=== PATIENT | female | born 1955 | race African-American/Black ===

== ENCOUNTER 2017-11-13 13:02 | Emergency (ER) | payer OTHER | END 2017-11-13 13:59 | disposition home or self-care (01) | LOC: ER 13:02 | DX: R51 Headache (principal); E11.9 Type 2 diabetes mellitus without complications; E78.00 Pure hypercholesterolemia, unspecified; I10 Essential (primary) hypertension; F17.210 Nicotine dependence, cigarettes, uncomplicated | CPT/HCPCS: 70450; 99284-25 ==

== ENCOUNTER 2018-05-17 15:45 | Emergency (ER) | payer OTHER ==
[~2018-05-17] VITALS: Ht 162.6 cm; Wt 77.6 kg
[~2018-05-17 15:45] MED LIST: ACET325T9 PO; PROC10TA57 PO
[2018-05-17 16:23] VITALS: BP 185/86
--- NOTE | 2018-05-17 16:31 | PHYS DOC ---
Past Medical History Past Medical History: Diabetes-Type II, High Cholesterol, Hypertension Past Surgical History: No Surgical History Additional Information: "I'M TRYIN' TO QUIT" Alcohol Use: None Drug Use: None Adult General Chief Complaint Chief Complaint: HEADACHE HPI HPI Patient is a 62 year old female who presents with was standing at the [place] and had a freezer door open and stood up and hit the top of her head on the freezer door Pavithra day. Patient denies any loss of consciousness, nausea , C-spine pain, vomiting, visual changes, dizziness, and numbness, tingling. Patient states she has not taken any pain meds today but yesterday took ibuprofen which helped. Patient rates the pain at or out of 10 and states is aching. Patient denies fever, kidney problems, chest pain, shortness of air. There is no laceration on top of her head or a bump which she hit her head. Review of Systems Review of Systems Constitutional: Denies fever or chills [] Eyes: Denies change in visual acuity, redness, or eye pain [] HENT: Denies nasal congestion or sore throat [] Respiratory: Denies cough or shortness of breath [] Cardiovascular: No additional information not addressed in HPI [] GI: Denies abdominal pain, nausea, vomiting, bloody stools or diarrhea [] : Denies dysuria or hematuria [] Musculoskeletal: Denies back pain or joint pain [] Integument: Denies rash or skin lesions [] Neurologic: Headache. Denies focal weakness or sensory changes [] Endocrine: Denies polyuria or polydipsia [] All other systems were reviewed and found to be within normal limits, except as documented in this note. Allergies Allergies Allergies Coded Allergies Type Severity Reaction Last Updated Verified No Known Drug Allergies 12/12/15 No Physical Exam Physical Exam Constitutional: Well developed, well nourished, no acute distress, non-toxic appearance. [] HENT: Top of head tenderness where she hit her head yesterday on the freezer door. Normocephalic, atraumatic, bilateral external ears normal, oropharynx moist, no oral exudates, nose normal. [] Eyes: PERRLA, EOMI, conjunctiva normal, no discharge. [] Neck: Normal range of motion, no tenderness, supple, no stridor. [] Cardiovascular:Heart rate regular rhythm, no murmur [] Lungs & Thorax: Bilateral breath sounds clear to auscultation [] Abdomen: Bowel sounds normal, soft, no tenderness, no masses, no pulsatile masses. [] Skin: Warm, dry, no erythema, no rash. [] Back: No tenderness, no CVA tenderness. [] Extremities: No tenderness, no cyanosis, no clubbing, ROM intact, no edema. [] Neurologic: Alert and oriented X 3, normal motor function, normal sensory function, no focal deficits noted. [] Psychologic: Affect normal, judgement normal, mood normal. [] Current Patient Data Vital Signs Vital Signs Date Time Temp Pulse Resp B/P (MAP) Pulse Ox O2 Delivery O2 Flow Rate FiO2 05/17/18 16:23 77 18 100 05/17/18 16:14 98.3 159/88 (111) Room Air 98.3 EKG EKG [] Radiology/Procedures Radiology/Procedures [] Course & Med Decision Making Course & Med Decision Making Patient is a 62 year old female who presents with was standing at the [place] and had a freezer door open and stood up and hit the top of her head on the freezer door Pavithra day. Patient denies any loss of consciousness, nausea , C-spine pain, vomiting, visual changes, dizziness, and numbness, tingling. Patient states she has not taken any pain meds today but yesterday took ibuprofen which helped. Patient rates the pain at or out of 10 and states is aching. Patient denies fever, kidney problems, chest pain, shortness of air. There is no laceration on top of her head or a bump which she hit her head. The [place] CT head roll is a score of [address] of the head is unnecessary for this patient. Patient is alert and oriented and steady on her feet. Patient did drive herself here. Patient has no bony tenderness in her C-spine. No deformities of the neck or head. Patient does not have Resendez sign or any drainage in bilateral ears. Patient is a history of hypertension, cholesterol, diabetes and only takes her medication sporadically. Patient has no history of any surgeries has no known drug allergies. Patient sees Dr. Montelongo in [place] as her primary care physician. Patient should continue taking ibuprofen for pain and follow-up with her primary care physician. Patient to return to the ED if she begins having vomiting, dizziness, visual changes, intense head pain, or syncopal episodes. Patient is on no blood thinners. Staff Physician Addendum: I was working in the ER during the course of this patient's visit. I was available for consultation as needed, but I was not directly involved in the care of this patient. [] Dragon Disclaimer Dragon Disclaimer This electronic medical record was generated, in whole or in part, using a voice recognition dictation system. Departure Departure Impression: Primary Impression: Headache Additional Impression: Head injury Disposition: ADMITTED INPATIENT Condition: STABLE Referrals: UNKNOWN PCP NAME (PCP) Patient Instructions: Head Injury, Adult Additional Instructions: Follow up with your primary care physician and return to ED for vomiting, increased pain, syncope, dizziness. Take ibuprofen for pain. Problem Qualifiers Primary Impression: Headache Headache type: unspecified Headache chronicity pattern: acute headache Intractability: not intractable Qualified Codes: R51 - Headache Additional Impression: Head injury Encounter type: initial encounter Qualified Codes: S09.90XA - Unspecified injury of head, initial encounter RADHA SAL APRN May 17, 2018 16:31 MARCO BELLA MD May 20, 2018 01:59
== END 2018-05-17 17:35 | disposition left against medical advice (07) ==
LOC: ER 15:45
DX: S09.90XA Unspecified injury of head, initial encounter (principal); E78.00 Pure hypercholesterolemia, unspecified; E11.9 Type 2 diabetes mellitus without complications; I10 Essential (primary) hypertension; F17.200 Nicotine dependence, unspecified, uncomplicated; W22.03XA Walked into furniture, initial encounter; Y93.89 Activity, other specified; Y92.89 Other specified places as the place of occurrence of the external cause; Y99.8 Other external cause status
CPT/HCPCS: 99281

== ENCOUNTER 2019-01-23 16:57 | Emergency (ER) | payer OTHER ==
[~2019-01-23] VITALS: Ht 162.6 cm; Wt 78.0 kg
[2019-01-23 17:15] VITALS: BP 181/88
--- NOTE | 2019-01-23 17:33 | PHYS DOC ---
Past Medical History Past Medical History: Diabetes-Type II, High Cholesterol, Hypertension Past Surgical History: No Surgical History Alcohol Use: None Drug Use: None Adult General Chief Complaint Chief Complaint: SHOULDER INJURY HPI HPI Patient is a 63 year old [female] who presents with []right shoulder pain starting approximately 3-4 hours ago. Patient reports she had been carrying some groceries and walk. She started to have some pain in her right shoulder. States she was concerned thinking her shoulder may have deteriorated or May have been out of place. Reports she has never had any issues with that in the past but she does have a history of arthritis. States pain is mostly anterior shoulder reports it increases when she tries to move her arm. Denies paresthesias to arm. States she has not taken any medicine for this at this time. Review of Systems Review of Systems Constitutional: Denies fever or chills [] Eyes: Denies change in visual acuity, redness, or eye pain [] HENT: Denies nasal congestion or sore throat [] Respiratory: Denies cough or shortness of breath [] Cardiovascular: No additional information not addressed in HPI [] GI: Denies abdominal pain, nausea, vomiting, bloody stools or diarrhea [] : Denies dysuria or hematuria [] Musculoskeletal: Denies back pain . Reports pain and tenderness to right anterior shoulder area [] Integument: Denies rash or skin lesions [] Neurologic: Denies headache, focal weakness or sensory changes [] Endocrine: Denies polyuria or polydipsia [] All other systems were reviewed and found to be within normal limits, except as documented in this note. Allergies Allergies Allergies Coded Allergies Type Severity Reaction Last Updated Verified No Known Drug Allergies 12/12/15 No Physical Exam Physical Exam Constitutional: Well developed, well nourished, no acute distress, non-toxic appearance. [] Neck: Normal range of motion, no tenderness, supple, no stridor. [] Cardiovascular:Heart rate regular rhythm, no murmur [] Lungs & Thorax: Bilateral breath sounds clear to auscultation [] Abdomen: Bowel sounds normal, soft, no tenderness, no masses, no pulsatile masses. [] Skin: Warm, dry, no erythema, no rash. No lesions noted to arm or shoulder. [] Back: No tenderness, no CVA tenderness. [] Extremities: No tenderness, no cyanosis, no clubbing, ROM intact, no edema. Full range of motion to her shoulder noted able to raise arm anteriorly raise arm laterally with full range of motion. Minimal crepitus noted similar to arthritis on lateral raising of right arm. No additional discomfort noted. Does report some minimal discomfort on palpation to anterior joint space. No bony tenderness noted. Strength strength normal..[] Neurologic: Alert and oriented X 3, normal motor function, normal sensory function, no focal deficits noted. [] Psychologic: Affect normal, judgement normal, mood normal. [] EKG EKG [] Radiology/Procedures Radiology/Procedures [] Course & Med Decision Making Course & Med Decision Making Pertinent Labs and Imaging studies reviewed. (See chart for details) [Discussed findings with patient with full range of motion and no visible deformity little need for imaging at this time. Offered patient says she doesn't feel is necessary either. Discussed findings with patient to start using sling at home for a couple days, reports she does have a sling at home that she will use.. start Taking ibuprofen scheduled 3 times a day. Apply ice to shoulder. do some shoulder exercises. She patient has some discomfort she should follow-up with her primary care provider in the next week. Griselda Disclaimer Dragon Disclaimer This electronic medical record was generated, in whole or in part, using a voice recognition dictation system. Departure Departure Impression: Primary Impression: Right shoulder strain Disposition: 01 HOME, SELF-CARE Condition: GOOD Referrals: UNKNOWN PCP NAME (PCP) Patient Instructions: Shoulder Exercises, Generic, SportsMed, Shoulder Pain, Tkyb-tf-[id number] Additional Instructions: As we discussed he should take ibuprofen 3 [id number] pills every 8 hours for the next 7-10 days this will help decrease the discomfort in her shoulder and some swelling that has built up because of the strain. He should continue to put ice on the shoulder. Continue to do some exercises. As we discussed he can use a sling while you're at home but do this for no more than 3-4 days. Reports try to do some exercises on her shoulder to initially maintain flexibility. If he continued to have problems follow-up with her primary care provider to con pupil personnel services director additional workup for shoulder PRAFUL PRITCHETT APRN January 23, 2019 17:33
== END 2019-01-23 17:43 | disposition home or self-care (01) ==
LOC: ER 16:57
DX: S46.911A Strain of unspecified muscle, fascia and tendon at shoulder and upper arm level, right arm, initial encounter (principal); E11.9 Type 2 diabetes mellitus without complications; E78.00 Pure hypercholesterolemia, unspecified; I10 Essential (primary) hypertension; X50.0XXA Overexertion from strenuous movement or load, initial encounter; Y93.89 Activity, other specified; Y92.89 Other specified places as the place of occurrence of the external cause; Y99.8 Other external cause status
CPT/HCPCS: 99281

== ENCOUNTER 2019-11-25 10:49 | Emergency (ER) | payer BC, OTHER ==
[~2019-11-25] VITALS: Ht 162.6 cm; Wt 78.1 kg
[2019-11-25 11:00] VITALS: BP 150/74
--- NOTE | 2019-11-25 11:35 | PHYS DOC ---
Past Medical History Past Medical History: Diabetes-Type II, High Cholesterol, Hypertension Past Surgical History: No Surgical History Smoking Status: Current Every Day Smoker Alcohol Use: None Drug Use: None Adult General Chief Complaint Chief Complaint: BACK PAIN OR INJURY [facility] HPI Patient is a 64 year old [female presents with upper left back pain she said is been going on actually for years on and off for the last week it is gotten a little worse she feels it more when she lays on her right side in bed she sometimes feels it when she is taking a deep breath although she is not feeling it right now she does not recall any injury she went to a while back and they told her she was fine. She thought she had the flu 2 weeks ago but the coughing has basically resolved there is no fever no shortness of breath no anterior chest pain. No blood clot risk factors no leg pain no leg symptoms. Review of Systems Review of Systems Constitutional: Denies fever or chills [] Eyes: Denies change in visual acuity, redness, or eye pain [] HENT: Denies nasal congestion or sore throat [] Respiratory: Denies cough or shortness of breath [] Cardiovascular: No additional information not addressed in HPI [] All other systems were reviewed and found to be within normal limits, except as documented in this note. Allergies Allergies Allergies Coded Allergies Type Severity Reaction Last Updated Verified No Known Drug Allergies 12/12/15 No Physical Exam Physical Exam Constitutional: Well developed, well nourished, no acute distress, non-toxic appearance. [] HENT: Normocephalic, atraumatic, bilateral external ears normal, oropharynx moist, no oral exudates, nose normal. [] Eyes: PERRLA, EOMI, conjunctiva normal, no discharge. [] Neck: Normal range of motion, no tenderness, supple, no stridor. [] Cardiovascular:Heart rate regular rhythm, no murmur [] Lungs & Thorax: Bilateral breath sounds clear to auscultation [] Abdomen: Bowel sounds normal, soft, no tenderness, no masses, no pulsatile masses. [] Skin: Warm, dry, no erythema, no rash. [] Back: mild ttp at the area of the left mid back. no focal midline ttp noted. Extremities: No tenderness, no cyanosis, no clubbing, ROM intact, no edema. [] Neurologic: Alert and oriented X 3, normal motor function, normal sensory function, no focal deficits noted. [] Psychologic: Affect normal, judgement normal, mood normal. [] Current Patient Data Vital Signs Vital Signs Date Time Temp Pulse Resp B/P (MAP) Pulse Ox O2 Delivery O2 Flow Rate FiO2 11/25/19 11:00 98.1 70 18 150/74 (99) 97 Room Air 98.1 EKG EKG [] Radiology/Procedures Radiology/Procedures [] Course & Med Decision Making Course & Med Decision Making Pertinent Labs and Imaging studies reviewed. (See chart for details) []64 yo f with left upper back pain. It is probably musculoskeletal is been longstanding she said is been on and off for years now and has gotten worse in the last week and she does endorse some pleuritic component although there is also a positional component and she is currently asymptomatic in the emergency room with normal normal oxygen saturation. I recommended lab work as well as chest x-ray d-dimer to rule out a PE which again I do have very low pretest probability for overall. She understands the risk of a missed diagnosis up to and including debility or . She says that she really does not think it is that she thought it was back pain she has not yet used any [id number] agents either. She says she really does not have time to wait in the emergency room for these tests and she is worried about possibly picking up coronavirus in the hospital which I obviously am empathetic to. We ultimately agreed she is going to go home with a trial of NSAIDs ice or heat rest and gradual return to activity we talked about strict return precautions for any increase in symptoms significant recurrent symptoms shortness of breath or any other symptoms or concerns she is of sound mind and she understands the discharge instructions. Dragon Disclaimer Dragon Disclaimer This electronic medical record was generated, in whole or in part, using a voice recognition dictation system. Departure Departure Impression: Primary Impression: Back pain Disposition: 01 HOME, SELF-CARE Condition: STABLE Patient Instructions: Back Pain, Adult MARCO BELLA MD Nov 25, 2019 11:35
== END 2019-11-25 11:32 | disposition home or self-care (01) ==
LOC: ER 10:49
DX: M54.6 Pain in thoracic spine (principal); E11.9 Type 2 diabetes mellitus without complications; E78.00 Pure hypercholesterolemia, unspecified; I10 Essential (primary) hypertension; F17.200 Nicotine dependence, unspecified, uncomplicated
CPT/HCPCS: 99281

== ENCOUNTER 2021-03-23 14:07 | Emergency (ER) | payer BC ==
[~2021-03-23] VITALS: Ht 162.6 cm; Wt 88.0 kg
[2021-03-23 14:25] VITALS: BP 173/85
[2021-03-23] MEDS ORDERED: CLOT15CR23 TP ×2 (14:59→15:00)
[2021-03-23] MEDS ORDERED: AMOX875T PO ×2 (14:59→15:00)
[2021-03-23] MEDS ORDERED: OFLO5DRO7 AS ×2 (14:59→15:00)
--- NOTE | 2021-03-23 15:00 | PHYS DOC ---
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 Patient is also complaining of drainage yellow in color from the left ear. Denies any fever. Denies any cough or congestion. 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 [] Eyes: Denies change in visual acuity. [] HENT: Reports left ear pain, drainage. Denies nasal congestion or sore throat. [] Respiratory: Denies cough or shortness of breath. [] Cardiovascular: Denies chest pain or edema. [] GI: Denies abdominal pain, nausea, vomiting, bloody stools or diarrhea. [] : Denies dysuria. [] Musculoskeletal: Denies back pain or joint pain. [] Integument: Denies rash. [] Neurologic: Denies headache, focal weakness or sensory changes. [] Psychiatric: Denies depression or anxiety. [] (RASHAUN HERNANDEZ TOWER E[employer]OR HELPER) Heart Score: C/O Chest Pain: N/A Risk Factors: Risk Factors: DM, Current or recent (<one month) smoker, HTN, HLP, family history of CAD, obesity. Risk Scores: Score 0 - 3: 2.5% MACE over next 6 weeks - Discharge Home Score 4 - 6: 20.3% MACE over next 6 weeks - Admit for Clinical Observation Score 7 - 10: 72.7% MACE over next 6 weeks - Early Invasive Strategies (RASHAUN HERNANDEZ TOWER E[employer]OR HELPER) Allergies: Allergies: Allergies Coded Allergies Type Severity Reaction Last Updated Verified No Known Drug Allergies 12/12/15 No (RASHAUN HERNANDEZ TOWER E[employer] HELPER) Physical Exam: PE: Constitutional: Well developed, well nourished, no acute distress, non-toxic appearance. [] HENT: Normocephalic, atraumatic, bilateral external ears normal, oropharynx moist, no oral exudates, nose normal. [] Left exterior ear is dry and crusty, the ear canal has some erythema and yellow exudate, the TM is visualized, is erythematous. The right ear canal is impacted with cerumen, the eardrum can barely be visualized but does not appear infected Eyes: PERRLA, EOMI, conjunctiva normal, no discharge. [] Neck: Normal range of motion, no tenderness, supple, no stridor. [] Cardiovascular:Heart rate regular rhythm, no murmur [] Lungs & Thorax: Bilateral breath sounds clear to auscultation [] Abdomen: Bowel sounds normal, soft, no tenderness, no masses, no pulsatile masses. [] Skin: Warm, dry, no erythema, no rash. [] Back: No tenderness, no CVA tenderness. [] Extremities: No tenderness, no cyanosis, no clubbing, ROM intact, no edema. [] Neurologic: Alert and oriented X 3, normal motor function, normal sensory function, no focal deficits noted. [] Psychologic: Affect normal, judgement normal, mood normal. [] (RASHAUN HERNANDEZ APRN) Current Patient Data: Vital Signs: Vital Signs Date Time Temp Pulse Resp B/P (MAP) Pulse Ox O2 Delivery O2 Flow Rate FiO2 03/23/21 14:25 98.2 73 18 173/85 (99) 98 Room Air 98.2 (RASHAUN HERNANDEZ APRN) EKG: EKG: [] (RASHAUN HERNANDEZ APRN) Radiology/Procedures: Radiology/Procedures: [] (RASHAUN HERNANDEZ APRN) Course & Med Decision Making: Course & Med Decision Making Pertinent Labs and Imaging studies reviewed. (See chart for details) This is a 65-year-old female patient with otitis media, externa, and exterior e ar fungal infection. Discharged on amoxicillin, ofloxacin and clotrimazole cream. Right ear canal is impacted with cerumen, discharged on Debrox. Follow- up with primary care doctor in 1 week or ENT in 2 week (RASHAUN HERNANDEZ APRN) Dragon Disclaimer: Dragon Disclaimer: This electronic medical record was generated, in whole or in part, using a voice recognition dictation system. (RASHAUN HERNANDEZ APRN) Departure Departure Impression: Primary Impression: Otitis externa, left Qualified Codes: H60.502 - Unspecified acute noninfective otitis externa, left ear Additional Impressions: Otitis media, left Qualified Codes: H65.192 - Other acute nonsuppurative otitis media, left ear Impacted cerumen, right ear Cutaneous candidiasis Disposition: HOME / SELF CARE / HOMELESS Condition: STABLE Referrals: JASPER ANN APRN (PCP) follow up in one week CATRACHITA MARQUEZ MD follow up in 2 weeks Patient Instructions: Otitis Externa, [id number], Otitis Media, Adult Additional Instructions: You have ear infection. Use the prescribed medications as ordered please use debrox in the right ear to reduce ear wax. Please follow-up with the provided ENT in two weeks. Scripts Clotrimazole (CLOTRIMAZOLE) 15 Gm Cream..g. 1 RENATO TP TID, #45 GM Prov: RASHAUN HERNANDEZ APRN 03/23/21 Ofloxacin (OFLOXACIN) 5 Ml Drops 5 DROP BID, #5 ML 0 Refills Prov: RASHAUN HERNANDEZ APRN 03/23/21 Amoxicillin (AMOXICILLIN) 875 Mg Tablet 1 TAB PO BID, #20 TAB Prov: RASHAUN HERNANDEZ APRN 03/23/21 Attending Signature Attending Signature I have reviewed the PA/THERAPY DIRECTOR's note and plan of care. I was available for consultation as needed during the patient's visit in the emergency department. I agree with the clinical impression, plan, and disposition. (DEQUAN TAYLOR DO) RASHAUN HERNANDEZ APRN Mar 23, 2021 15:00 DEQUAN TAYLOR DO Mar 23, 2021 16:22
== END 2021-03-23 15:22 | disposition home or self-care (01) ==
LOC: ER 14:07
DX: H60.502 Unspecified acute noninfective otitis externa, left ear (principal); H65.192 Other acute nonsuppurative otitis media, left ear; B37.2 Candidiasis of skin and nail; H61.21 Impacted cerumen, right ear; E11.9 Type 2 diabetes mellitus without complications; E78.00 Pure hypercholesterolemia, unspecified; I10 Essential (primary) hypertension; F17.200 Nicotine dependence, unspecified, uncomplicated
CPT/HCPCS: 99283